=== PATIENT | female | born 1990 ===

== ENCOUNTER 2019-04-10 11:01 | Emergency (ER) | payer OTHER ==
[2019-04-10 11:14] VITALS: BP 144/105
--- NOTE | 2019-04-10 11:40 | UC ---
Complaint Female HPI - HPI Summary HPI Summary: was seen at [facility] 4 days ago and started on keflex bid for a "swollen lump" l labial area. patient states lump is improving, smaller and not painful now. Has follow-up appoint next week with [facility]. she is nervous and would like us to recheck today - History Of Current Complaint Chief Complaint: [facility] Stated Complaint: PERSONAL Time Seen by Provider: 04/10/19 11:21 Hx Obtained From: Patient Hx Last Menstrual Period: 03/29/19 ?: No Onset/Duration: Gradual Onset Timing: Constant Pain Intensity: 0 Aggravating Factor(s): Nothing Alleviating Factor(s): Nothing Associated Signs And Symptoms: Positive: Negative. Negative: Fever, Vaginal Bleeding/Discharge, Nausea, Genital Blisters - Allergies/Home Medications Allergies/Adverse Reactions: Allergies Allergy/AdvReac Type Severity Reaction Status Date / Time No Known Allergies Allergy Verified 04/10/19 11:14 Home Medications: Home Medications cephALEXin [Keflex] 500 mg PO BID 04/10/19 [History Confirmed 04/10/19] PMH/Surg Hx/FS Hx/Imm Hx Previously Healthy: Yes - Surgical History Surgical History: Yes Surgery Procedure, Year, and Place: appy - Family History Known Family History: Positive: Non-Contributory - Social History Occupation: Student Lives: With Family Alcohol Use: None Substance Use Type: None Smoking Status (MU): Never Smoked Tobacco Review of Systems All Other Systems Reviewed And Are Negative: Yes Constitutional: Positive: Negative. Negative: Fever, Chills Respiratory: Positive: Negative Cardiovascular: Positive: Negative Genitourinary: Positive: Other - resolving lump L side labia. Negative: Dysuria , Vaginal/Penile Burning, Vaginal/Penile Itching, Vaginal/Penile Discharge Musculoskeletal: Positive: Negative Neurological: Positive: Negative Psychological: Positive: Negative Is Patient Immunocompromised?: No Physical Exam Triage Information Reviewed: Yes Appearance: Well-Appearing, No Pain Distress, Well-Nourished Vital Signs: Initial Vital Signs Temp 98 F 04/10/19 11:09 Pulse 78 04/10/19 11:09 Resp 18 04/10/19 11:09 BP 144/105 04/10/19 11:09 Pulse Ox 100 04/10/19 11:09 Vital Signs Reviewed: Yes Respiratory Exam: Normal Respiratory: Positive: Lungs clear Cardiovascular Exam: Normal Cardiovascular: Positive: RRR Pelvic Exam: Positive: Other - external exam: no redness or lesions, no vaginal d/c. small, soft, non-tender swollen area below L labia which pt says is much better than 4 days ago Neurological Exam: Normal Psychological Exam: Normal Complaint Female Dx - Differential Dx/Diagnosis Differential Diagnosis/HQI/PQRI: Bartholin Cyst, Sexually Transmitted Disease, Other - abscess Provider Diagnosis: Abscess Discharge - Sign-Out/Discharge Documenting (check all that apply): Patient Departure All imaging exams completed and their final reports reviewed: No Studies - Discharge Plan Condition: Good Disposition: HOME Patient Education Materials: Abscess (ED) Referrals: No Primary Care Phys,NOPCP [Primary Care Provider] - Additional Instructions: Your abscess appears to be resolving with antibiotics apply warm packs to area finish antibiotic as prescribed and follow[facility]up with [facility] as scheduled next week - Billing Disposition and Condition Condition: GOOD Disposition: Home - Attestation Statements Provider Attestation: I was available for consult. This patient was seen by the JORGE. The patient was not presented to, seen by, or examined by me. -Roxana
== END 2019-04-10 11:47 | disposition home or self-care (01) ==
LOC: UCEAST 11:01
DX: N76.4 Abscess of vulva (principal)
CPT/HCPCS: 99201; G0463